=== PATIENT | male | born 1950 | race Caucasian/White ===

== ENCOUNTER 2018-03-31 07:43 | Inpatient (IN) ==
--- OUTSIDE RECORDS SUMMARY | 2018-03-31 07:50 | External Medical Summary | Referral Summary ---
:1950 Author Organization Via [facility] Address [address] [place] [address] Care Team Providers Name Role Phone Duran Garcia V Primary Care Physician Encounter VC Date(s): 01/22/18 - 01/24/[address] [address] Encounter Diagnosis Acute kidney injury (Discharge Diagnosis) - 01/24/18 Nephrolithiasis (Discharge Diagnosis) - 01/24/18 Discharge Disposition: 01-Home or Self Care Attending Physician: Jos Canas MD Admitting Physician: León Rousseau DO Vital Signs Most recent to oldest [Reference Range]: 1 Temperature Oral [35.8-37.3 degC] 36.8 degC (01/24/18 12:00 PM) Peripheral Pulse Rate [60-100 bpm] 53 bpm *LOW* (01/24/18 12:00 PM) Heart Rate Monitored [60-100 bpm] 57 bpm *LOW* (01/24/18 3:48 AM) Respiratory Rate [14-20 br/min] 18 br/min (01/24/18 12:00 PM) Blood Pressure [90-140/60-90 mmHg] 124/68 mmHg (01/24/18 12:00 PM) Mean Arterial Pressure, Cuff 88 mmHg (01/23/18 12:05 PM) SpO2 96 % (01/24/18 12:00 PM) Problem List Condition Effective Dates Status Health Status Informant Acute pain(Confirmed) Active Benign essential hypertension Active (disorder)(Confirmed) BENIGN HYPERTENSION(Confirmed)1 < 07/01/14 Resolved Carotid artery disease(Confirmed) Active Chronic kidney disease stage 3 Active (disorder)(Confirmed) Chronic kidney disease, stage III Active (moderate)(Confirmed) Chronic pain(Confirmed)2 Active Chronic paranoid schizophrenia Active (disorder)(Confirmed) Coronary arteriosclerosis Active (disorder)(Confirmed) Coronary artery disease(Confirmed)3 Active Diabetic renal disease Resolved (disorder)(Confirmed) DM renal manif type II(Confirmed)4 < 07/01/14 Resolved Dyslipidemia(Confirmed)5 Active GOUT NOS(Confirmed)6 Active Gout (disorder)(Confirmed) Active Hearing loss(Confirmed) Active High cholesterol(Confirmed) Active COR ATH UNSP VSL NTV/GFT(Confirmed) Active MIXED HYPERLIPIDEMIA(Confirmed) Active Mixed hyperlipidemia Active (disorder)(Confirmed) Morbid obesity (disorder)(Confirmed) Active Obesity, Class III, BMI 40-49.9 Active (morbid obesity)(Confirmed) Osteoarthritis(Confirmed) Active Overweight(Confirmed) Active PARANOID SCHIZO-CHRONIC(Confirmed) Active Renal insufficiency(Confirmed)7 Active Type II diabetes mellitus with Active nephropathy(Confirmed) 1Hypertension/High BP. See Conversion [id number] SUBSTANCE AGREEMENT SIGNED ON 08/05/201559960iaoypqrz adenosine thallium stress test at proximal inferior wall; septal hypokinesis; EF 37. . See Conversion Zlyjwkve2Zcumrhif-Qvec 2 peripheral neuropathy; nephropathy. See Conversion Sxpjjgza7Aq severe hypertriglyceridemia, low HDL. See Conversion Xxjsxqkq8afbag olecranon tophi. See Conversion Dlyysylc4MTZ stage II (Cr=1.3.-1.4) See Conversion Document Allergies, Adverse Reactions, Alerts Substance Reaction Severity Status lisinopril NAUSEA LIGHTHEADED Active Medications Aspirin Low Dose 81 mg oral delayed release tablet 81 mg 1 tabs, Oral, Daily, 0 Refill(s) Start Date: 01/22/18 Status: Orderedatenolol 25 mg oral tablet 25 mg 1 tabs, Oral, Bedtime (once a day), # 30 tabs, 0 Refill(s) Start Date: 01/22/18 Status: Orderedclopidogrel 75 mg oral tablet 75 mg 1 tabs, Oral, Bedtime (once a day) Start Date: 01/22/18 Status: Orderedferrous sulfate 325 mg (65 mg elemental iron) oral delayed release tablet 325 mg 1 tabs, Oral, Daily, # 30 tabs, 0 Refill(s), Pharmacy: [facility] [id number], 1 tabs Oral Daily Start Date: 01/24/18 Status: OrderedfluPHENAZine decanoate 25 mg/mL injectable solution 8 mg, IntraMuscular, q2wk Start Date: 01/22/18 Status: Orderedfolic acid 1 mg oral tablet 1 mg 1 tabs, Oral, Daily, # 30 tabs, 0 Refill(s), Pharmacy: [facility] [id number], 1 tabs Oral Daily Start Date: 01/24/18 Status: OrderedHYDROcodone-acetaminophen 10 mg-325 mg oral tablet range dose 1 tabs, Oral, TID, as needed for pain, 0 Refill(s) Start Date: 01/22/18 Status: Orderedrosuvastatin 40 mg oral tablet 40 mg 1 tabs, Oral, Daily, 0 Refill(s) Start Date: 01/22/18 Status: OrderedVitamin B12 100 mcg oral tablet 100 mcg 1 tabs, Oral, Daily, # 30 tabs, 0 Refill(s), Pharmacy: [facility] [id number], 1 tabs Oral Daily Start Date: 01/24/18 Status: OrderedVitamin C 500 mg oral tablet 500 mg 1 tabs, Oral, Daily, # 30 tabs, 0 Refill(s), Pharmacy: [facility] [id number], 1 tabs Oral Daily Start Date: 01/24/18 Status: Ordered Results Hematology Most recent to oldest [Reference Range]: 1 WBC [4.8-10.8 10*3/uL] 8.5 10*3/uL (01/24/18 3:04 AM) RBC [4.60-6.20] 3.99 *LOW* (01/24/18 3:04 AM) Hgb [14.0-18.0 gm/dL] 12.1 gm/dL *LOW* (01/24/18 3:04 AM) Hct [42.0-52.0 %] 37.2 % *LOW* (01/24/18 3:04 AM) MCV [82.0-99.0 fL] 93.2 fL (01/24/18 3:04 AM) MCH [27.0-32.0 pg] 30.3 pg (01/24/18 3:04 AM) MCHC [32.0-36.0 gm/dL] 32.5 gm/dL (01/24/18 3:04 AM) RDW [11.5-14.5 %] 13.8 % (01/24/18 3:04 AM) Platelet [150-400 10*3/uL] 160 10*3/uL (01/24/18 3:04 AM) MPV [9.4-12.3 fL] 11.2 fL (01/24/18 3:04 AM) Immature Granulocytes [0.0-1.0 %] 0.4 % (01/24/18 3:04 AM) Neutrophils [51-75 %] 68 % (01/24/18 3:04 AM) Lymphocytes [20-46 %] 22 % (01/24/18 3:04 AM) Monocytes [4-11 %] 8 % (01/24/18 3:04 AM) Eosinophils [0-4 %] 2 % (01/24/18 3:04 AM) Basophils [0-2 %] 0 % (01/24/18 3:04 AM) Neutro Absolute [1.90-7.00] 5.78 (01/24/18 3:04 AM) Lymph Absolute [0.80-3.30] 1.85 (01/24/18 3:04 AM) Clark Absolute [0.30-1.00] 0.64 (01/24/18 3:04 AM) Eos Absolute [0.00-0.50] 0.16 (01/24/18 3:04 AM) Baso Absolute [0.00-0.20] 0.02 (01/24/18 3:04 AM) Nucleated RBC Automated [0 /100 WBC] 0.0 /100 WBC (01/24/18 3:04 AM) Reticulocyte [0.6-2.5 %] 1.8 % (01/22/18 5:37 PM) Coagulation Most recent to oldest [Reference Range]: 1 INR [0.9-1.2] 1.1 (01/23/18 8:02 AM) PTT [25.0-35.0 seconds] 24.4 seconds *LOW* (01/23/18 8:02 AM) Chemistry Most recent to oldest [Reference Range]: 1 Sodium Lvl [136-144 mEq/L] 139 mEq/L (01/24/18 3:04 AM) Potassium Lvl [3.6-5.1 mEq/L] 4.9 mEq/L (01/24/18 3:04 AM) Chloride [99-109 mEq/L] 109 mEq/L (01/24/18 3:04 AM) CO2 [22-32 mEq/L] 23 mEq/L (01/24/18 3:04 AM) AGAP [3-20 mEq/L] 7 mEq/L (01/24/18 3:04 AM) BUN [4-20 mg/dL] 36 mg/dL *HI* (01/24/18 3:04 AM) Glucose Lvl [70-100 mg/dL] 159 mg/dL *HI* (01/24/18 3:04 AM) Creatinine Lvl [0.64-1.27 mg/dL] 2.32 mg/dL *HI* (01/24/18 3:04 AM) eGFR [>60 mL/min] 28 mL/min 1 *ABN* (01/24/18 3:04 AM) Calcium Lvl [8.6-10.0 mg/dL] 8.6 mg/dL (01/24/18 3:04 AM) Albumin Lvl [3.5-4.8 gm/dL] 2.6 gm/dL *LOW* (01/24/18 3:04 AM) Total Protein [6.1-7.9 gm/dL] 5.6 gm/dL *LOW* (01/22/18 5:37 PM) ALT [17-63 U/L] 10 U/L *LOW* (01/22/18 5:37 PM) AST [15-41 U/L] 17 U/L (01/22/18 5:37 PM) Alk Phos [26-104 U/L] 62 U/L (01/22/18 5:37 PM) Bili Total [0.2-1.2 mg/dL] 0.6 mg/dL 2 (01/22/18 5:37 PM) Bili Direct [0.0-0.2 mg/dL] 0.1 mg/dL (01/22/18 5:37 PM) Bili Indirect [0.0-1.0 mg/dL] 0.5 mg/dL (01/22/18 5:37 PM) Iron [65-175 mcg/dL] 40 mcg/dL *LOW* (01/22/18 5:37 PM) TIBC [268-490 mcg/dL] 228 mcg/dL *LOW* (01/22/18 5:37 PM) Iron Sat [11-46 %] 18 % (01/22/18 5:37 PM) Transferrin [180-329 mg/dL] 153 mg/dL *LOW* (01/22/18 5:37 PM) Ferritin Lvl [24-340 ng/mL] 331 ng/mL (01/22/18 5:37 PM) Magnesium Lvl [1.8-2.5 mg/dL] 1.8 mg/dL (01/24/18 3:04 AM) Uric Acid [4.8-8.7 mg/dL] 9.6 mg/dL *HI* (01/24/18 3:04 AM) Phosphorus [2.4-4.7 mg/dL] 4.2 mg/dL 3 (01/24/18 3:04 AM) Vitamin B12 Lvl [213-816 pg/mL] 237 pg/mL (01/22/18 5:37 PM) Folate Lvl [7.0-31.4 ng/mL] 4.1 ng/mL *LOW* (01/22/18 5:37 PM) 1Result Comment: Multiply eGFR results by 1.21 for race.2Result Comment: Naproxen, specifically the metabolite O-desmethylnaproxen, may cause spurious elevation in Total Bilirubin levels.3Result Comment: High dosages of liposomal Amphotericin B (AmBisome) therapy or other drug preparations that use a liposomal envelope to facilitate drug delivery may cause falsely elevated results for phosphorus.Urinalysis Most recent to oldest [Reference Range]: 1 UA Color Straw (01/22/18 8:55 PM) UA Appear Clear (01/22/18 8:55 PM) UA pH [5.0-8.0] 5.0 (01/22/18 8:55 PM) UA Leuk Est [Negative] Negative (01/22/18 8:55 PM) UA Nitrite [Negative] Negative (01/22/18 8:55 PM) UA Protein [Negative] Negative (01/22/18 8:55 PM) UA Glucose [Negative] Pos 1+ *ABN* (01/22/18 8:55 PM) UA Ketones [Negative] Negative (01/22/18 8:55 PM) UA Urobilinogen [<1.0] Negative (01/22/18 8:55 PM) UA Bili [Negative] Negative (01/22/18 8:55 PM) UA Blood [Negative] Pos 1+ *ABN* (01/22/18 8:55 PM) UA Spec Grav [1.003-1.030] 1.015 (01/22/18 8:55 PM) Type Not Specified (01/22/18 8:55 PM) UA WBC [0-4] 2-5 (01/22/18 8:55 PM) UA RBC [0-2] 2-5 (01/22/18 8:55 PM) Epithelial Cells None Seen (01/22/18 8:55 PM) UA Bacteria None Seen (01/22/18 8:55 PM) Microbiology Reports TEST:Urine Culture STATUS:Order in Progress BODY SITE: SOURCE:Urine COLLECTED DATE/TIME:01/22/18 8:55 PMUrine CultureNo growth Immunizations Given and Recorded Vaccine Date Status Refusal Reason influenza virus vaccine, inactivated 08/17/16 Given influenza virus vaccine, inactivated 08/05/15 Given influenza virus vaccine, inactivated 07/11/14 Recorded pneumococcal 13-valent conjugate vaccine 10/22/14 Given tetanus/diphtheria/pertussis, acel(Tdap) 03/29/13 Recorded influenza virus vaccine, live 06/02/11 Given pneumococcal 23-polyvalent vaccine 07/22/05 Recorded Procedures Procedure Date Related Diagnosis Body Site Status Placement of nephrostomy catheter, 01/23/18 Completed percutaneous, including diagnostic nephrostogram and/or ureterogram when performed, imaging guidance (eg, ultrasound and/or fluoroscopy) and all associated radiological supervision and interpretation Diabetic foot examination 10/22/14 Completed Hospitalization 09/12/12 Completed DIABETIC FOOT EXAM1 09/11/09 Completed Diabetic eye exam2 Completed DIABETIC FOOT/FILAMENT/PULSES EXAM3 Completed left navicular fx w/ bone graft Completed quadruple bypass surgery Completed Right knee scope Completed right rotator cuff repair Completed Tonsillectomy Completed 1DM FOOT RCK; 06-02-11. See Conversion [id number] in summer [id number]. See Conversion Document Social History Social History Type Response Smoking Status Never smoker entered on: 04/22/14
--- OUTSIDE RECORDS SUMMARY | 2018-03-31 07:50 | External Medical Summary | Referral Summary ---
:1950 Author Organization [facility] Address [address] [place] [address] [place] [address] Care Team Providers Name Role Phone Duran Garcia V Primary Care Physician Encounter VC Date(s): 02/17/17 - 02/17/17 [facility] [place] [phone] [place] Discharge Diagnosis: Chronic paranoid schizophrenia (disorder) Discharge Diagnosis: Gout Discharge Diagnosis: Chronic pain Discharge Diagnosis: Mixed hyperlipidemia Discharge Diagnosis: Type II diabetes mellitus with nephropathy Discharge Diagnosis: Benign essential hypertension Discharge Disposition: 01-Home or Self Care Attending Physician: Duran Garcia MD Admitting Physician: Duran Garcia MD Vital Signs Most recent to oldest [Reference Range]: 1 Peripheral Pulse Rate [60-100 bpm] 78 bpm (02/17/17 8:14 AM) Respiratory Rate [14-20 br/min] 18 br/min (02/17/17 8:14 AM) Blood Pressure [90-140/60-90 mmHg] 132/80 mmHg (02/17/17 8:14 AM) Problem List Condition Effective Dates Status Health Status Informant Benign essential hypertension Active (disorder)(Confirmed) BENIGN HYPERTENSION(Confirmed)1 [...] with Active nephropathy(Confirmed) 1Hypertension/High BP. See Conversion [id number] SUBSTANCE AGREEMENT SIGNED ON 08/05/201512102nkqwqjyb adenosine thallium stress test at proximal inferior wall; septal hypokinesis; EF 37. . See Conversion Ghjpvjgf3Ecxpijgq-Uaxe 2 peripheral neuropathy; nephropathy. See Conversion Otitters0Vl severe hypertriglyceridemia, low HDL. See Conversion Kkytrzdt1zoefr olecranon tophi. See Conversion Cousedfn8DAA stage II (Cr=1.3.-1.4) See Conversion Document Allergies, Adverse Reactions, Alerts Substance Reaction Severity Status lisinopril NAUSEA LIGHTHEADED Active Medications atenolol 25 mg oral tablet See Instructions, TAKE ONE TABLET BY MOUTH DAILY, # 30 tabs, 5 Refill(s), eRx: [facility] , TAKE ONE TABLET BY MOUTH DAILY Start Date: 04/08/16 Status: Orderedclopidogrel 75 mg oral tablet See Instructions, TAKE ONE TABLET BY MOUTH EVERY DAY, # 30 tabs, 5 Refill(s), eRx: [facility] [id number] Start Date: 01/07/17 Status: Orderedcolchicine 0.6 mg oral tablet See Instructions, TAKE 1 TABLET BY MOUTH TWICE DAILY, # 60 tabs, eRx: [facility] [id number] Start Date: 12/08/16 Status: OrderedCrestor 40 mg oral tablet See Instructions, TAKE 1 TABLET BY MOUTH DAILY, # 90 tabs, 1 Refill(s), eRx: [facility] , TAKE 1 TABLET BY MOUTH DAILY Start Date: 12/11/15 Status: OrderedfluPHENAZine 2.5 mg oral tablet See Instructions, gets every 2 weeks at [facility], 0 Refill(s) Start Date: 04/22/14 Status: OrderedHYDROcodone-acetaminophen 10 mg-325 mg oral tablet 1 tabs, Oral, TID, as needed for chronic neuropathy, MUST LAST ONE MONTH, # 90 tabs, 0 Refill(s) Start Date: 02/11/17 Status: Orderedlosartan 50 mg oral tablet See Instructions, TAKE ONE TABLET BY MOUTH DAILY, # 30 tabs, eRx: [facility] [id number] Start Date: 09/30/16 Status: Orderedpioglitazone 30 mg oral tablet See Instructions, TAKE ONE TABLET BY MOUTH DAILY, # 30 tabs, 2 Refill(s), eRx: [facility] [id number], TAKE ONE TABLET BY MOUTH DAILY Start Date: 06/25/16 Status: Ordered Results Chemistry Most recent to oldest [Reference Range]: 1 Sodium Lvl [135-144 mEq/L] 140 mEq/L (02/17/17 8:50 AM) Potassium Lvl [3.5-5.2 mEq/L] 4.3 mEq/L (02/17/17 8:50 AM) Chloride [99-111 mEq/L] 111 mEq/L (02/17/17 8:50 AM) CO2 [23-31 mEq/L] 23 mEq/L (02/17/17 8:50 AM) AGAP [3-20 mEq/L] 6 mEq/L (02/17/17 8:50 AM) BUN [8-26 mg/dL] 17 mg/dL (02/17/17 8:50 AM) Glucose Lvl [70-99 mg/dL] 154 mg/dL *HI* (02/17/17 8:50 AM) Creatinine Lvl [0.72-1.25 mg/dL] 1.63 mg/dL *HI* (02/17/17 8:50 AM) eGFR [>60 mL/min] 42 mL/min 1 *ABN* (02/17/17 8:50 AM) Calcium Lvl [8.4-10.2 mg/dL] 9.3 mg/dL (02/17/17 8:50 AM) Uric Acid [3.5-7.2 mg/dL] 12.2 mg/dL *HI* (02/17/17 8:50 AM) Chol [0-199 mg/dL] 167 mg/dL (02/17/17 8:50 AM) Trig [0-149 mg/dL] 172 mg/dL *HI* (02/17/17 8:50 AM) HDL [40-84 mg/dL] 35 mg/dL *LOW* (02/17/17 8:50 AM) LDL [0-130 mg/dL] 98 mg/dL (02/17/17 8:50 AM) VLDL Cholesterol [0-28 mg/dL] 34 mg/dL *HI* (02/17/17 8:50 AM) Cardiac Risk [0.0-5.7] 4.8 (02/17/17 8:50 AM) Hgb A1c [4.1-5.6 %] 6.3 % *HI* (02/17/17 8:50 AM) eAvg Glucose 134.1 mg/dL (02/17/17 8:50 AM) 1Result Comment: Multiply eGFR results by 1.21 for race. Immunizations Given and Recorded Vaccine Date Status Refusal Reason influenza virus vaccine, inactivated 08/17/16 Given influenza virus vaccine, inactivated 08/05/15 Given influenza virus vaccine, inactivated 07/11/14 Recorded influenza virus vaccine, live 06/02/11 Given pneumococcal 13-valent conjugate vaccine 10/22/14 Given pneumococcal 23-polyvalent vaccine 07/22/05 Recorded tetanus/diphtheria/pertussis, acel(Tdap) 03/29/13 Recorded Procedures Procedure Date Related Diagnosis Body Site Diabetic foot examination 10/22/14 Hospitalization 09/12/12 DIABETIC FOOT EXAM1 09/11/09 Diabetic eye exam2 DIABETIC FOOT/FILAMENT/PULSES EXAM3 left navicular fx w/ bone graft quadruple bypass surgery Right knee scope right rotator cuff repair Tonsillectomy 1DM FOOT RCK; 06-02-11. See Conversion Oqsbkqkt8ntth in summer. See Conversion Document Social History Social History Type Response Smoking Status Never smoker Assessment and Plan Extracted from: Title: 3 Month CDM Author: Duran Garcia MD Date: 02/17/17 Impression and Plan Diagnosis Benign essential hypertension (PYE75-WW I10, Discharge, Medical). Chronic pain (PVV24-TX G89.29, Discharge, Medical). Chronic paranoid schizophrenia (disorder) (ABQ56-PE F20.0, Discharge, Medical). Gout (KXJ32-JB M10.9, Discharge, Medical). Mixed hyperlipidemia (ZBN07-EQ E78.2, Discharge, Medical). Type II diabetes mellitus with nephropathy (HCJ77-JQ E11.21, Discharge, Medical ). Orders Orders (Selected) Outpatient Orders Future (On Hold) Albumin/Creatinine Ratio, Urine: BMP: Fasting Lipid Profile: Hgb A1c: Uric Acid: .
--- OUTSIDE RECORDS SUMMARY | 2018-03-31 07:50 | External Medical Summary | Referral Summary ---
:1950 Author Organization [facility] [address] [place] [address] Care Team Providers Name Role Phone Duran Garcia V Primary Care Physician Encounter VC Date(s): 05/24/17 - 05/24/17 [facility] [address] [place] [phone] [place] Discharge Diagnosis: Morbid obesity (disorder) Discharge Diagnosis: Chronic pain Discharge Diagnosis: Type II diabetes mellitus with nephropathy Discharge Diagnosis: Mixed hyperlipidemia Discharge Diagnosis: Benign essential hypertension Discharge Diagnosis: Coronary arteriosclerosis Discharge Disposition: 01-Home or Self Care Attending Physician: Duran Garcia MD Admitting Physician: Duran Garcia MD Vital Signs Most recent to oldest [Reference Range]: 1 Peripheral Pulse Rate [60-100 bpm] 77 bpm (05/24/17 10:51 AM) Respiratory Rate [14-20 br/min] 18 br/min (05/24/17 10:51 AM) Blood Pressure [90-140/60-90 mmHg] 130/82 mmHg (05/24/17 10:51 AM) Problem List Condition Effective Dates Status [...] with Active nephropathy(Confirmed) 1Hypertension/High BP. See Conversion [id number] SUBSTANCE AGREEMENT SIGNED ON 08/05/201518611mnstupou adenosine thallium stress test at proximal inferior wall; septal hypokinesis; EF 37. . See Conversion Uyqcwxpc7Igjoftww-Cdkr 2 peripheral neuropathy; nephropathy. See Conversion Uzfvyvps2Jv severe hypertriglyceridemia, low HDL. See Conversion Uaqvjsfa7lners olecranon tophi. See Conversion Sawjtvbu4HBP stage II (Cr=1.3.-1.4) See Conversion Document Allergies, Adverse Reactions, Alerts Substance Reaction Severity Status lisinopril NAUSEA LIGHTHEADED Active Medications clopidogrel 75 mg oral tablet See Instructions, TAKE ONE TABLET BY MOUTH EVERY DAY, # 30 tabs, 5 Refill(s), eRx: [facility] [id number] Start Date: 01/07/17 Status: Orderedcolchicine 0.6 mg oral tablet See Instructions, TAKE 1 TABLET BY MOUTH TWICE DAILY, # 60 tabs, 2 Refill(s), eRx: [facility] [id number] Start Date: 03/21/17 Status: OrderedfluPHENAZine 2.5 mg oral tablet See Instructions, gets every 2 weeks at [facility], 0 Refill(s) Start Date: 04/22/14 Status: OrderedHYDROcodone-acetaminophen 10 mg-325 mg oral tablet 1 tabs, Oral, TID, as needed for chronic neuropathy, MUST LAST ONE MONTH, # 90 tabs, 0 Refill(s) Start Date: 05/12/17 Status: Orderedlosartan 50 mg oral tablet See Instructions, TAKE ONE TABLET BY MOUTH DAILY, # 90 tabs, eRx: [facility] [id number] Start Date: 04/05/17 Status: OrderedMetoprolol Succinate ER 25 mg oral tablet, extended release See Instructions, TAKE 1 TABLET BY MOUTH DAILY TO REPLACE ATENOLOL 25 MG DUE TO NOT BEING ABLE TO GET FROM [facility], # 90 tabs, 6 Refill(s), eRx: [facility] Start Date: 04/19/17 Status: Orderedpioglitazone 30 mg oral tablet See Instructions, TAKE ONE TABLET BY MOUTH DAILY, # 30 tabs, 1 Refill(s), eRx: [facility] Start Date: 04/05/17 Status: Orderedrosuvastatin 40 mg oral tablet See Instructions, TAKE 1 TABLET BY MOUTH DAILY, # 90 tabs, 2 Refill(s), eRx: [facility] Start Date: 04/22/17 Status: Ordered Results Chemistry Most recent to oldest [Reference Range]: 1 Hgb A1c [4.1-5.6 %] 6.2 % *HI* (05/24/17 11:30 AM) eAvg Glucose 131.2 mg/dL (05/24/17 11:30 AM) Toxicology Most recent to oldest [Reference Range]: 1 Prescribed Meds - 1 (05/24/17 2:25 PM) Location, Toxicology [facility] (05/24/17 2:25 PM) [facility] (05/24/17 2:25 PM) Reason Physical (05/24/17 2:25 PM) SSN ? (05/24/17 2:25 PM) 1Result Comment: hydrocodone Immunizations Given and Recorded Vaccine Date Status [...] Tonsillectomy 1DM FOOT RCK; 06-02-11. See Conversion Pynigkbf8edua in summer [id number]/15/09. See Conversion Document Social History Social History Type Response Smoking Status Never smoker entered on: 04/22/14 Assessment and Plan Extracted from: Title: 3 Month CDM DM HTN Author: Duran Garcia MD Date: 05/24/17 Impression and Plan Diagnosis Type II diabetes mellitus with nephropathy (UUF96-QZ E11.21, Discharge, Medical ). Morbid obesity (disorder) (KBI07-NY E66.01, Discharge, Medical). Mixed hyperlipidemia (EVJ44-HE E78.2, Discharge, Medical). Coronary arteriosclerosis (KSI49-EJ I25.10, Discharge, Medical). Chronic pain (CRJ45-PB G89.29, Discharge, Medical). Benign essential hypertension (EZY30-AP I10, Discharge, Medical). Orders Orders (Selected) Outpatient Orders Future (On Hold) Hgb A1c: Pain Management Drug Match: Urine Drug Screen 10: .
--- OUTSIDE RECORDS SUMMARY | 2018-03-31 07:50 | External Medical Summary | Referral Summary ---
:1950 Author Organization [facility] Address [address] [place] [address] [place] [id number] Care Team Providers Name Role Phone Duran Garcia V Primary Care Physician Encounter VC Date(s): 11/16/16 - 11/16/16 [facility] [address] [place] [phone] Discharge Diagnosis: Type II diabetes mellitus with nephropathy Discharge Diagnosis: Diabetic neuropathy Discharge Diagnosis: Chronic pain Discharge Diagnosis: Medication monitoring encounter Discharge Diagnosis: Benign essential hypertension Discharge Diagnosis: Mixed hyperlipidemia Discharge Disposition: 01-Home or Self Care Attending Physician: Duran Garcia MD Admitting Physician: Duran Garcia MD Vital Signs Most recent to oldest [Reference Range]: 1 Peripheral Pulse Rate [60-100 bpm] 46 bpm *LOW* (11/16/16 10:11 AM) Respiratory Rate [14-20 br/min] 20 br/min (11/16/16 10:11 AM) Blood Pressure [90-140/60-90 mmHg] 108/74 mmHg (11/16/16 10:11 AM) SpO2 96 % (11/16/16 10:11 AM) Problem List Condition Effective Dates Status [...] with Active nephropathy(Confirmed) 1Hypertension/High BP. See Conversion [id number] SUBSTANCE AGREEMENT SIGNED ON 08/05/201544452hpvvrdes adenosine thallium stress test at proximal inferior wall; septal hypokinesis; EF 37. . See Conversion [id number]-Rnmd 2 peripheral neuropathy; nephropathy. See Conversion Abvfozqu3Ep severe hypertriglyceridemia, low HDL. See Conversion [id number] olecranon tophi. See Conversion [id number] stage II (Cr=1.3.-1.4) See Conversion Document Allergies, Adverse Reactions, Alerts Substance Reaction Severity Status lisinopril NAUSEA LIGHTHEADED Active Medications atenolol 25 mg oral tablet See Instructions, TAKE ONE TABLET BY MOUTH DAILY, # 30 tabs, 5 Refill(s), eRx: [facility] , TAKE ONE TABLET BY MOUTH DAILY Start Date: 04/08/16 Status: Orderedclopidogrel 75 mg oral tablet See Instructions, TAKE ONE TABLET BY MOUTH EVERY DAY, # 30 tabs, 2 Refill(s), eRx: [facility] , TAKE ONE TABLET BY MOUTH EVERY DAY Start Date: 03/18/16 Status: Orderedcolchicine 0.6 mg oral tablet See Instructions, TAKE 1 TABLET BY MOUTH TWICE DAILY, # 60 tabs, eRx: [facility] Start Date: 09/02/16 Status: OrderedCrestor 40 mg oral tablet See Instructions, TAKE 1 TABLET BY MOUTH DAILY, # 90 tabs, 1 Refill(s), eRx: [facility] , TAKE 1 TABLET BY MOUTH DAILY Start Date: 12/11/15 Status: OrderedfluPHENAZine 2.5 mg oral tablet See Instructions, gets every 2 weeks at [facility], 0 Refill(s) Start Date: 04/22/14 Status: OrderedHYDROcodone-acetaminophen 10 mg-325 mg oral tablet 1 tabs, Oral, TID, as needed for chronic neuropathy, MUST LAST ONE MONTH, # 90 tabs, 0 Refill(s) Start Date: 11/11/16 Status: Orderedlosartan 50 mg oral tablet See Instructions, TAKE ONE TABLET BY MOUTH DAILY, # 30 tabs, eRx: [facility] [id number] Start Date: 09/30/16 Status: Orderedpioglitazone 30 mg oral tablet See Instructions, TAKE ONE TABLET BY MOUTH DAILY, # 30 tabs, 2 Refill(s), eRx: [facility] [id number], TAKE ONE TABLET BY MOUTH DAILY Start Date: 06/25/16 Status: Ordered Results Chemistry Most recent to oldest [Reference Range]: 1 Sodium Lvl [135-144 mEq/L] 139 mEq/L (11/16/16 10:50 AM) Potassium Lvl [3.5-5.2 mEq/L] 4.7 mEq/L (11/16/16 10:50 AM) Chloride [99-111 mEq/L] 105 mEq/L (11/16/16 10:50 AM) CO2 [23-31 mEq/L] 25 mEq/L (11/16/16 10:50 AM) AGAP [3-20] 9 (11/16/16 10:50 AM) BUN [8-26 mg/dL] 19 mg/dL (11/16/16 10:50 AM) Glucose Lvl [70-99 mg/dL] 158 mg/dL *HI* (11/16/16 10:50 AM) Creatinine Lvl [0.72-1.25 mg/dL] 1.59 mg/dL *HI* (11/16/16 10:50 AM) eGFR [>60 mL/min] 44 mL/min 1 *ABN* (11/16/16 10:50 AM) Calcium Lvl [8.4-10.2 mg/dL] 9.6 mg/dL (11/16/16 10:50 AM) Albumin Lvl [3.4-4.8 gm/dL] 3.9 gm/dL (11/16/16 10:50 AM) Total Protein [6.0-7.6 gm/dL] 6.8 gm/dL (11/16/16 10:50 AM) ALT [0-55 U/L] 12 U/L (11/16/16 10:50 AM) AST [5-34 U/L] 19 U/L (11/16/16 10:50 AM) Alk Phos [40-150 U/L] 84 U/L (11/16/16 10:50 AM) Bili Total [0.2-1.2 mg/dL] 0.8 mg/dL (11/16/16 10:50 AM) Bili Direct [0.0-0.5 mg/dL] 0.2 mg/dL (11/16/16 10:50 AM) Bili Indirect [0.0-1.0 mg/dL] 0.6 mg/dL (11/16/16 10:50 AM) Hgb A1c [4.1-5.6 %] 6.7 % *HI* (11/16/16 10:50 AM) eAvg Glucose 145.6 mg/dL (11/16/16 10:50 AM) 1Result Comment: Multiply eGFR results by [...] Tonsillectomy 1DM FOOT RCK; 06-02-11. See Conversion Rhlfzhcn0ukix in summer. See Conversion Document Social History Social History Type Response Smoking Status Never smoker Assessment and Plan Extracted from: Title: 3 Month Chronic Pain Author: Duran Garcia MD Date: 11/16/16 Patient: MIGUEL ROSARIO Age: 66 years Sex: Male : 1950 Associated Diagnoses: Medication monitoring encounter; Benign essential hypertension; Mixed hyperlipidemia; Chronic pain; Type II diabetes mellitus with nephropathy; Diabetic neuropathy Author: Duran Garcia MD Visit Information Visit type: Scheduled follow-up. Source of history: Self. History limitation: None. Chief Complaint 11/16/2016 10:11 CDT 3 mo. chronic pain ck. History of Present Illness Assessment and Plan: Overall he is stable and doing well. His current pain regimen is adequately controlling his pain. Will get Hgb A1c, BMP and liver panel today. Narcotic pain agreement signed today. Follow up in 3 months for CRMMP or sooner if needed. HPI: 66 year old patient is here today for 3 month chronic pain management follow up. He reports his pain control is adequate during the day, occasionally has pain at night in bed. He reports occasional sharp in in the left knee. Chronic issues: Chronic pain in bilateral legs due to neuropathy Routine medication: Ewing 10-325mg TID Breakthrough medication: None. Use/Agreement: Ewing 10,g-325mg 90 tabs to last 30 days. Side effects from medications: Constipation occasionally, well controlled. Last UDS: NA Diabetes Type II: He states he does not check his blood sugars at all. Last Hgb A1c 6.5 on 05/18/16 Microalbumin normal in February 2016. Last eye exam: Negative for retinopathy on 09/29/[address] Santiago Gasca. Last foot exam: Known neuropathy: 05/18/16 Hypertension: He reports his home blood pressures are at goal. He is on Atenolol 25mg and Losartan 50mg. No side effects/adverse sx. ROS: Constitutional: Generally feeling well with no weight changes. Respiratory: No cough, shortness of breath, or wheezing. Cardiovascular: No chest pains or palpitations. No edema. Gastrointestinal: No abdominal pain or change in bowel habits. Neurovascular: No dizziness, drowsiness. Urinary: No urinary problems. PFSH: Medical Problem list reviewed from EHR. PHYSICAL EXAM: Appears in no acute distress. Oral mucous membranes are moist and appears well hydrated. Neck supple without adenopathy or JVD. Lungs sounds are clear. Heart regular rate and rhythm. Abdomen soft, nontender, without organomegaly. Extremities without edema. Health Status Allergies: Allergic Reactions (Selected) Severity Not Documented Lisinopril- Nausea lightheaded. Current medications: Home Medications (8) Active atenolol 25 mg oral tablet See Instructions clopidogrel 75 mg oral tablet See Instructions colchicine 0.6 mg oral tablet See Instructions Crestor 40 mg oral tablet See Instructions fluPHENAZine 2.5 mg oral tablet See Instructions HYDROcodone-acetaminophen 10 mg-325 mg oral tablet 1 tabs, PRN, Oral, TID losartan 50 mg oral tablet See Instructions pioglitazone 30 mg oral tablet See Instructions Problem list: Active Problems (23) Benign essential hypertension (disorder) Carotid artery disease Chronic kidney disease stage 3 (disorder) Chronic kidney disease, stage III (moderate) Chronic pain Chronic paranoid schizophrenia (disorder) COR ATH UNSP VSL NTV/GFT Coronary arteriosclerosis (disorder) Coronary artery disease Dyslipidemia Gout (disorder) GOUT NOS Hearing loss High cholesterol MIXED HYPERLIPIDEMIA Mixed hyperlipidemia (disorder) Morbid obesity (disorder) Obesity, Class III, BMI 40-49.9 (morbid obesity) Osteoarthritis Overweight PARANOID SCHIZO-CHRONIC Renal insufficiency Type II diabetes mellitus with nephropathy Histories Family History: Cancer Father Heart disease Mother Grandfather (M) Congestive heart failure Grandfather (P) Procedure history: Diabetic foot examination ([id number]) on 10/22/2014 at 64 Years. Hospitalization ([id number]) on 09/12/2012 at 62 Years. DIABETIC FOOT EXAM ([id number]) on 09/11/2009 at 59 Years. Comments: 07/01/2014 15:20 - Kacie Jeffers DM FOOT RCK; 06-02-11. See Conversion Document DIABETIC FOOT/FILAMENT/PULSES EXAM ([id number]). Comments: 07/01/2014 15:21 - Kacie Jeffers . See Conversion Document Right knee scope ([id number]). right rotator cuff repair ([id number]). left navicular fx w/ bone graft ([id number]). quadruple bypass surgery ([id number]). Tonsillectomy (129705022). Diabetic eye exam (161351). Comments: 10/23/2014 10:33 - Christophe Angel MA done in summer 2013 Social History Social & Psychosocial Habits Tobacco 04/22/2014 Use: Never smoker . Physical Examination Vital Signs 11/16/2016 10:11 CDT Peripheral Pulse Rate 46 bpm LOW Respiratory Rate 20 br/min Systolic Blood Pressure 108 mmHg Diastolic Blood Pressure 74 mmHg SpO2 96 % Measurements from flowsheet : Measurements 11/16/2016 10:11 CDT Height/Length Measured 175.26 cm Weight Measured 122.22 kg BSA Estimated 2.44 m2 Body Mass Index 39.79 kg/m2 Weight - lbs 269.449 lb Height - In 69 inch Review / Management Documentation reviewed: Reviewed prior records, Flowsheet, Reviewed home medications. Impression and Plan Diagnosis Medication monitoring encounter (QUX92-ZZ Z51.81, Discharge, Medical). Benign essential hypertension (BHL88-TV I10, Discharge, Medical). Mixed hyperlipidemia (SYG66-ZA E78.2, Discharge, Medical). Chronic pain (TMX87-TP G89.29, Discharge, Medical). Type II diabetes mellitus with nephropathy (WZJ36-DY E11.21, Discharge, Medical ). Diabetic neuropathy (LJK45-CE E11.40, Discharge, Medical). Orders Orders (Selected) Outpatient Orders Future (On Hold) BMP: Hgb A1c: Liver Panel: . Professional Services 11/16/2016 10:31. This note is prepared by Kalpana Uriarte, acting as a biomedical engineering director for Dr. Duran Garcia. The documentation recorded by the scribe reflects the service I personally performed and the decisions made by me. Addendum by Duran Garcia MD on Addendum: We discussed/considered use of November 16, 2016 12:07 CDT gabapentin for neuropathic pain, but decided not to try that because of potential drug interactions with his psychiatric medicines.
[2018-03-31 08:05] VITALS: BMI 35.0
[2018-03-31] MEDS ORDERED: KETAMINE 500 MG/10 ML INJECTION ONE (09:09)
[2018-03-31] MEDS ORDERED: DEXAMETHASONE 4 MG/ML INJECTION ONE (09:09)
[2018-03-31] MEDS ORDERED: ONDANSETRON 4 MG/2 ML INJECTION ONE (09:09)
[2018-03-31] MEDS ORDERED: FentaNYL 250 MCG/5 ML INJECTION ONE (09:09)
[2018-03-31] MEDS ORDERED: GLYCOPYRROLATE 0.4 MG/2 ML INJECTION ONE (09:10)
[2018-03-31] MEDS ORDERED: DiphenhydrAMINE 50 MG/ML INJECTION ONE (09:10)
[2018-03-31] MEDS ORDERED: ROCURONIUM 50 MG/5 ML INJECTION IVP ONE ×2 (09:13→10:01)
[2018-03-31] MEDS ORDERED: PROPOFOL 20 ML ONE (09:13)
[2018-03-31] MEDS ORDERED: LIDOCAINE 2% (100mg/5mL) 5ml PF SDV ONE (09:13)
[2018-03-31] MEDS: ERTAPENEM 1 G in NS 100 ML IV ONE (09:27)
[2018-03-31] MEDS ORDERED: HYDROMORPHONE 2 MG/ML INJECTION ONE (09:45)
[2018-03-31] MEDS ORDERED: .WATER FOR INJECTION,STERILE 10 ML VIAL ONE (09:46)
[2018-03-31] MEDS: LR 1,000 ML IV SCH ×3 (10:10→12:00)
[2018-03-31] MEDS ORDERED: ENOXAPARIN 40 MG/0.4 ML INJECTION SQ ONE (10:10)
[2018-03-31] MEDS ORDERED: EPHEDRINE 50mg/ml INJECTION ONE (10:18)
[2018-03-31] MEDS ORDERED: PHENYLEPHRINE INJ 10 MG/ML VIAL IV ONE (10:53)
[2018-03-31] MEDS ORDERED: INDOCYANINE GREEN 25mg INJECTION ONE ×2 (11:16→13:02)
[2018-03-31] MEDS ORDERED: LIDOCAINE 1% (10mg/ml) 2mL INJ PF SDV ID ONE (12:15)
[2018-03-31] MEDS ORDERED: NOZIN NASAL SWAB NAS ONE (12:15)
[2018-03-31] MEDS ORDERED: NS 1,000 ML IV SCH (12:15)
--- NOTE | 2018-03-31 12:44 | General Surgery Procedure Note ---
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
[2018-03-31] MEDS ORDERED: ONDANSETRON 4 MG/2 ML INJECTION IVP ONE (12:54)
[2018-03-31] MEDS ORDERED: PROMETHAZINE 25 MG INJECTION IVP PRN (13:38)
--- NOTE | 2018-03-31 13:50 | Operative Note ---
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 OPERATION Laparotomy with open right hemicolectomy. SURGEON Kp Youngblood MD HAND FOLDER Ke Lassiter MD ANESTHESIA General ASA CLASS 4 FINDINGS This patient did have postoperative changes from the laparoscopic appendectomy operation performed on 01/21/2018. The appendix was absent as a result of previous operative removal. There were a few adhesions around the cecum. There was no evidence of any metastatic disease in the peritoneal cavity. There was no ascites. There were no visceral or parietal peritoneal tumor implants. The liver appeared completely normal. There was no evidence of any metastatic disease at the liver. The gallbladder appeared normal. The gallbladder did not contain any stones. There was no evidence of any metastatic disease at the greater omentum. Loops of large and small intestine all appeared normal. DESCRIPTION OF OPERATION The patient was placed in supine position on the operating table. General anesthesia was satisfactorily induced. The abdomen was prepped and draped in routine sterile fashion. A midline vertically oriented abdominal incision was made and extended through the abdominal wall. The peritoneal cavity was entered. The Juanito wound protector was placed at the incision at this time. The Codman retractor was assembled at this time and used to provide exposure. The abdomen was explored with findings as described above. The greater omentum was from the right half of the transverse colon. The hepatic flexure of the colon was mobilized. The peritoneum along the right lateral gutter was incised. The ascending colon was mobilized medially. The duodenum was carefully identified and preserved from injury at this time. The mesentery of the transverse colon was examined. The position of the middle colic artery was identified by palpation of the mesentery. A distal resection margin was selected at the transverse colon just to the right side of the middle colic blood vessels so that there would be a good blood supply to the end of transverse colon which was left in the patient to be used for the anastomosis. The transverse colon was divided at the distal resection margin with the Ethicon brand TLC75 linear cutter stapler. This did allow good blood supply to the remaining mesentery leading up to the remaining transverse colon. A proximal resection margin was selected at the terminal ileum. The terminal ileum was divided at the proximal resection margin with the EthiAxis Three brand TLC75 linear cutter stapler. Mesentery beneath the segment of terminal ileum to be resected was divided. This was done by doubly clamping the mesentery with right angle clamps, dividing the mesentery between clamps and ligating the pedicles of mesentery with 0 Vicryl ligatures. The ileocolic artery and vein were divided at the level of the root of the mesentery. The artery and vein were doubly clamped with right angle clamps, divided between the clamps and ligated with 0 Vicryl ligatures. The mesentery beneath the ascending colon and the hepatic flexure of the colon and the proximal transverse colon was divided at the level of the root of the mesentery. This was done by doubly clamping the mesentery with right angle clamps, dividing the mesentery between right angle clamps and ligating the pedicles of mesentery with 0 Vicryl ligatures. The specimen of terminal ileum, cecum, descending colon and proximal transverse colon along with the underlying mesentery was then handed off as a specimen for study by the pathologist. Irrigation was performed at the peritoneal cavity. Hemostasis appeared to be satisfactory everywhere. The stapled closed end of ileum was brought up into a position adjacent to the stapled closed end of the transverse colon. A functional end-to-end anastomosis was then created between the stapled closed end of the ileum and stapled closed end of the transverse colon using the Net[employer]spex brand TLC75 linear cutter stapler and the EthiAxis Three brand TX60B stapler. The internal staple lines were inspected as this was done and they looked good. The external staple lines were also inspected and they looked good. There did appear to be a good blood supply to the anastomosis. There was no tension on the anastomosis. The lumen of the anastomosis appeared to have satisfactory size. Two stitches of 3-0 Vicryl suture were placed at the crotch of the anastomosis. These were 3-0 Vicryl simple interrupted seromuscular stitches. The opening in the mesentery beneath the anastomosis was closed with a continuous simple [id number] stitch using 3-0 Vicryl suture. Hemostasis was satisfactory throughout the peritoneal cavity. The greater omentum was brought down over the anastomosis and beneath the incision. The Codman retractor was removed. The Juanito wound protector was removed. The surgeon, hospital medical assistant and scrub nurse all changed gowns and gloves at this time. New sterile drapes were placed at the incision. New light handles were used. A reserved clean instrument tray was then used for closing the wound. The abdominal incision was closed. The fascial layer of the incision was closed and the linea alba was reapproximated with a continuous simple over- and-over stitch using #1 PDS suture. Skin margins at the incision were reapproximated with skin durga. Sterile dressings were applied. Sponge, needle and instrument counts were all correct. The patient did appear to tolerate the operation well. The patient was transferred from the operating room to the recovery room in satisfactory condition. BARRIE
[2018-03-31] MEDS: NS 1,000 ML IV SCH (14:03)
--- NOTE | 2018-03-31 14:09 | Anesthesia Postoperative Note ---
- Date and Time Date: 03/31/18 Time: 13:45 - Status Patient Participated in Evaluation: Patient Participated in Person Vital Signs: Temperature 96.9 F 03/31/18 14:05 Pulse Rate 89 03/31/18 14:00 Respiratory Rate 19 03/31/18 14:00 Blood Pressure 134/82 03/31/18 13:46 Pulse Oximetry 98 03/31/18 14:00 Respiratory Function: Airway Patent Cardiovascular Function: Regular Pulse EKG: Sinus Rhythm Mental Status: Alert and Oriented Pain Intensity: 0 Hydration: IV Infusing Nausea/Vomiting: None Complications During Recover: None Apparent - Follow-Up Instructions Instructions: Per Surgeon
[2018-03-31] MEDS: FAMOTIDINE PB 20 MG/50 ML BAG IV SCH (15:23)
[2018-03-31] MEDS: INSULIN ASPART 100unit/ml INJECTION SQ PRN ×2 (18:17→23:11)
[2018-03-31] MEDS: HYDROMORPHONE 2 MG/ML INJECTION IVP PRN (20:19)
[2018-04-01] MEDS: NS 1,000 ML IV SCH ×3 (01:16→23:23)
[2018-04-01] MEDS: FAMOTIDINE PB 20 MG/50 ML BAG IV SCH ×2 (01:16→14:20)
[2018-04-01] MEDS: HYDROMORPHONE 2 MG/ML INJECTION IVP PRN ×3 (02:03→17:00)
[2018-04-01] MEDS: INSULIN ASPART 100unit/ml INJECTION SQ PRN ×3 (06:13→17:52)
[2018-04-01] MEDS: ONDANSETRON 4 MG/2 ML INJECTION IVP PRN ×3 (08:19→20:46)
[2018-04-01] MEDS: ENOXAPARIN 40 MG/0.4 ML INJECTION SQ SCH (08:38)
--- NOTE | 2018-04-01 10:35 | Progress Note ---
DATE 04/01/2018 POSTOP DAY #1 HISTORY The patient was transferred from the recovery room to the critical care unit after the operation yesterday as a precautionary measure. The patient has been doing well overall. He did have some sudden bradycardia in the early evening yesterday. The patient was asymptomatic at this time. The bradycardia resolved spontaneously. Dr. Youngblood was notified. The regular assembler 1st shift for this patient (Dr. Hernandez) is out of town at this time. Dr. Bazzi was consulted regarding this bradycardia. Kalpana will see the patient this morning. The cardiac rhythm has been stable throughout the night. The patient is up in a chair at this time. He is alert and oriented. He reports he has good pain control with intravenous Dilaudid. He has been using incentive spirometry. The patient is receiving Lovenox and sequential compression devices for deep venous thrombosis prophylaxis. The patient is receiving sliding scale insulin for glucose control. Urine output has been good since the operation. PHYSICAL EXAMINATION VITAL SIGNS: Pulse is 70. Respiratory rate is 18. Blood pressure is 111/63. Oxygen saturation is 97% on room air. ABDOMEN: The dressings are left in place at the abdominal incision at this time. LABORATORY DATA White blood cell count is 6300. Hemoglobin is 10.9. Hematocrit is 34.2. Serum sodium is 142. Serum potassium is 4.6. Serum creatinine is 1.3. Serum glucose was 150 this morning. Latest glucometer reading was 172. IMPRESSION Doing well following laparotomy with open right hemicolectomy on 03/31/2018. PLAN 1. Continue to monitor patient in the critical care unit until he is seen by the assembler 1st shift service later this morning. 2. Continue Lovenox and sequential compression devices for deep venous thrombosis prophylaxis. 3. Continue intravenous Pepcid for GI prophylaxis. 4. Continue incentive spirometer. 5. Advance activity as tolerated. 6. Discontinue Reyna catheter. 7. Continue sliding scale insulin for glucose control. MTDD
--- NOTE | 2018-04-01 14:03 | Cardiology Consult Note ---
History of Present Illness Consult date: 03/31/18 Requesting physician: Kp Youngblood Chief complaint: bradycardia History of present illness: Ha is a 67 year old male who is known to Dr. Hernandez's practice with a history of CAD with CABG and MIKE to [facility] through KERRICK 08/2017, HTN, and DM type II who had a low grade appendiceal mucinous neoplasm and underwent open right hemicolectomy yesterday by Dr. Rosendo Youngblood. Post-operatively he was noted to have bradycardia in the 50s and Dr. Bazzi was consulted for further evaluation and we appreciate the consult. Ha is seen in CCU. He reports having a slow heart rate due to his medications (Metoprolol) He reports that the last time he passed out was 1967. He denies dizziness, lightheadedness, chest pain, pressure, palpitations, nausea Review of Systems - Constitutional Constitutional: Absent: chills, fever(s) - EENMT Eyes: Absent: change in vision Balance: Absent: vertigo Mouth/Throat: Absent: sore throat - Cardiovascular Cardiovascular: Absent: chest pain, palpitations, syncope, dyspnea on exertion Vascular: Absent: pedal edema - Respiratory Respiratory: Absent: cough, dyspnea, dyspnea on exertion - Gastrointestinal Gastrointestinal: Absent: constipation, nausea, vomiting - Genitourinary Genitourinary: Absent: dysuria - Integumentary/Breasts Integumentary: Absent: rash - Neurological Neurological: Absent: dizziness - Endocrine Endocrine: Absent: palpitations PFSH Patient Stated Medical History Cerebrovascular Accident Yes: - denies residual 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 Other HEENT Yes: 'BUSTED EAR DRUM' Angina Yes: none in past 6mths Cardiac Arrhythmia Yes: 'BRADYCARDIA' Coronary Artery Disease Yes Hypertension Yes Myocardial Infarction Yes: 1998 Asthma Yes: CHILD Sleep Apnea No Diabetes Mellitus Type 2 Yes Hx Kidney Stones Yes Hx Renal Disease Yes: chronic stage 3 Other Hematologic Yes: takes plavix Osteoarthritis Yes Other Musculoskeletal Yes: gout Chemotherapy Yes: Schizophrenia Yes Clinic Medical History (Last Updated 01/10/18 @ 10:47 by Duyen Baker RN) Angina at rest (Chronic Medical) Bradycardia (Chronic Medical) Hypertension (Chronic Medical) CVA (cerebral vascular accident) (Resolved Medical) Myocardial infarction (Resolved Medical) Surgical History: 1. Tonsillectomy as a child at [facility] at [place], [place]. 2. Operation on left wrist to treat navicular bone fracture at some time in the by Dr. Rich Jackson at [facility] at [place], [place]. 3. Operation to place bone graft from hip to left wrist for treatment of a nonunion of navicular fracture at some time in the at [facility] at [place], [place]. 4. Right rotator cuff repair operation at some time in the by Dr. Lemos at [facility] at [place], [place]. 5. Cardiac catheterization in 1998 at [facility] at [place], [place]. 6. Triple coronary artery bypass operation in 1998 at [facility] at [place], [place]. 7. Cardiac catheterization with placement of coronary artery stent in 2009 at the [facility] at [place], [place]. 8. Cystoscopy, bilateral retrograde pyelogram and left ureteral dilation and ureteroscopic stone lithotripsy and insertion of ureteral stent on 10/28/[address] Wagner at [facility] at [place], [place]. Postoperative diagnosis was gross hematuria and abnormal urine cytology and left ureteropelvic junction stone with left ureteral stricture and left proximal ureteral stone. 9. Cardiac catheterization with placement of drug- eluting coronary artery stent at the left anterior descending coronary artery on 08/23/[address] Hernandez at [place], [place]. One postoperative diagnosis was coronary artery disease. Another diagnosis was apical akinesia with an ejection fraction of about 65%. 10. Laparoscopic appendectomy on 01/21/[address] Youngblood at [facility] at [place], [place]. Pathology report on the appendix did show a diagnosis of low grade appendiceal mucinous neoplasm. 11. Right nephrostomy tube placement on [address] Bradshaw at [facility] at [place], [place]. 12. Cystoscopy, right retrograde pyelogram, right ureteroscopy with laser lithotripsy and right stent placement on 02/01/[address] Bradshaw at [place], [place]. Postoperative diagnosis was right nephrolithiasis. 13. Cystoscopy, right retrograde pyelogram, right ureteroscopy with stone basketing and right stent placement on 03/01/[address] Bradshaw at [facility] at [place], [place]. Postoperative diagnosis was right nephrolithiasis. Family History: Maternal uncle - unknown heart disease mother - heart valve disease - Social History Smoking status: Former smoker second hand exposure: No Substance use type: does not use Alcohol intake frequency: does not drink Current occupational status: retired Does patient use chewing tobacco?: No Current residence: Apartment/Private Home Medications Home Medications Medication Instructions Recorded Confirmed Type Rosuvastatin Calcium [Crestor] 40 mg PO DAILY #0 09/12/12 03/31/18 History Clopidogrel Bisulfate [Clopidogrel] 75 mg PO DAILY #60 10/27/15 03/31/18 History Colchicine 0.6 mg PO DAILY #60 10/27/15 03/31/18 History Metoprolol Succinate 25 mg PO DAILY 06/24/17 03/31/18 History Aspirin *EC* [Ecotrin] 81 mg PO DAILY #30 tab 08/24/17 03/31/18 Rx Losartan [Cozaar] 50 mg PO DAILY 01/08/18 03/31/18 History FluPHENAZine [Prolixin] 8 mg IM Q2WKS 02/01/18 03/31/18 History Pioglitazone [Actos 30 mg] 30 mg PO DAILY 02/01/18 03/31/18 History Hydrocodone/Acetaminophen 1 tab PO TID PRN 03/30/18 03/31/18 History [Hydrocodon-Acetaminophn 10-325] Allergies Allergy/AdvReac Type Severity Reaction Status Date / Time ciprofloxacin AdvReac Intermediate Nausea Verified 03/31/18 08:18 lisinopril AdvReac Intermediate Nausea Verified 03/31/18 08:18 morphine AdvReac Intermediate Nausea and Verified 03/31/18 08:18 Vomiting Exam Vital signs: Temperature 98 F 04/01/18 04:00 Pulse Rate 67 04/01/18 09:00 Respiratory Rate 18 04/01/18 06:04 Blood Pressure 111/63 04/01/18 06:04 Pulse Oximetry 97 04/01/18 06:04 - Constitutional no acute distress, well nourished, cooperative - Routine HEENT Exam Head: Present: normocephalic Nose: dry mucous membranes - Routine Neck Exam Absent: JVD, carotid bruit - Routine Chest/Breast/Axilla Exam Chest wall: Absent: tenderness - Routine Respiratory Exam Present: CTA bilaterally. Absent: dyspnea, rales, wheezes - Routine Cardiovascular Exam Present: RRR, no murmur - Routine Abdominal Exam Present: soft, tenderness - Routine Extremities Exam Present: no edema, pulses intact - Routine Skin Exam Present: intact, dry, warm - Routine Neurological Exam Present: alert, oriented X3 - Routine Psychiatric Exam Present: normal affect, normal thought process Results 04/01/18 04:00 04/01/18 04:01 CBC 04/01/18 Range/Units 04:00 WBC 6.3 D (4.5-11.0) T/MM3 RBC 3.65 L (4.50-5.90) M/MM3 Hgb 10.9 L D (13.5-17.5) GM/DL Hct 34.2 L (41-53) % Plt Count 182 (130-400) T/MM3 Neut # (Auto) 4.7 (1.8-7.7) T/MM3 Lymph # (Auto) 1.0 (1-4.8) T/MM3 [place] # (Auto) 0.6 (0-0.8) T/MM3 Eos # (Auto) 0.0 (0-0.5) T/MM3 Baso # (Auto) 0.0 (0-0.2) T/MM3 Comprehensive Metabolic Panel 04/01/18 Range/Units 04:01 Sodium 142 (136-146) MEQ/L Potassium 4.6 (3.6-5) MEQ/L Chloride 112 H (98-107) MEQ/L Carbon Dioxide 22 (22-30) MEQ/L BUN 17.0 (9-20) MG/DL Creatinine 1.3 D (0.8-1.5) mg/dL Glucose 150 H (75-110) MG/DL Calcium 8.0 L D (8.4-10.2) MG/DL Intake and Output 03/31/18 04/01/18 04/01/18 22:59 06:59 14:59 Intake Total 795.000 / 795.000 778.333 / 778.333 526.667 / 526.667 Output Total 463 / 463 482 / 482 245 / 245 Balance 332.000 / 332.000 296.333 / 296.333 281.667 / 281.667 Intake: IV 795.000 / 795.000 778.333 / 778.333 526.667 / 526.667 Famotidine Pb 20 mg In 50 ml @ 50 / 50 50 / 50 100 mls/hr IV Q12H PAUL Rx#: [id number] Ns 1,000 ml @ 100 mls/hr IV . 745.000 / 745.000 728.333 / 728.333 526.667 / 526.667 Q10H PAUL Rx#:[id number] Output: Urine Amount (Catheter) 463 / 463 482 / 482 245 / 245 Other: Urine Appearance Clear Clear Clear Urine Color Yellow Yellow Yellow Weight 239 lb 10.279 oz Patient Weight 04/02/18 06:59 Weight 239 lb 10.279 oz EKG interpretations - EKG EKG results cardiology: sinus rhythm - AR, pacemaker, normal Myocardial infarction: inferior AR (old age indeterminate) Assessment and Plan - Assessment and Plan (1) Bradycardia Current visit: Yes Status: Acute - Occasional HR as low as 45, nonsustained - asymptomatic - Holding BB as is NPO anyway - continue to monitor telemetry - Mag and TSH WNL (2) S/P right hemicolectomy Current visit: Yes Status: Acute -PO day 1 - Denies c/o pain, N/V - remains NPO (3) Atherosclerosis of coronary artery bypass graft without angina pectoris Current visit: Yes Status: Chronic - Successful MIKE to LAD through [facility] 08/23/17 - off Plavix for emergent surgery - resume when okay with surgery for dual antiplatelet therapy (4) Essential (primary) hypertension Current visit: Yes Status: Chronic Well controlled on current therapy - continue current therapy when okay with surgery (5) Mixed hyperlipidemia Current visit: Yes Status: Chronic Takes Crestor, PCP manages (6) Type 2 diabetes mellitus without complications Current visit: Yes Status: Chronic PCP manages - Assessment and Plan Bradycardia Current visit: Yes Status: Acute - Occasional HR as low as 45, nonsustained - asymptomatic - Holding BB as is NPO anyway - continue to monitor telemetry for pauses or heart block - Mag and TSH WNL S/P right hemicolectomy Current visit: Yes Status: Acute - PO day 1 - Denies c/o pain, N/V - remains NPO Atherosclerosis of coronary artery bypass graft without angina pectoris Current visit: Yes Status: Chronic - Successful MIKE to LAD through [facility] 08/23/17 - off Plavix for emergent surgery - resume when okay with surgery for dual antiplatelet therapy Essential (primary) hypertension Current visit: Yes Status: Chronic - Well controlled on current therapy - continue current therapy when okay with surgery Mixed hyperlipidemia Current visit: Yes Status: Chronic - Takes Crestor, PCP manages Type 2 diabetes mellitus without complications Current visit: Yes Status: Chronic - PCP manages Thank you for allowing us to participate in the care of this patient, we will follow along with you. Patient was examined by me, Kalpana Rosario APRN. Finding were discussed with Dr. Bazzi and together we agree on the plan of care. Hospital Course Summary Disclaimer: The visit summary below is not to be considered part of the above Progress Note.
[2018-04-01] MEDS ORDERED: ACETAMINOPHEN IV 1,000 MG/100 ML VIAL IV ONE (17:26)
[2018-04-01] MEDS ORDERED: ACETAMINOPHEN IV 1,000 MG/100 ML VIAL IV PRN (17:57)
[2018-04-02] MEDS: FAMOTIDINE PB 20 MG/50 ML BAG IV SCH ×2 (01:31→13:57)
[2018-04-02] MEDS: ONDANSETRON 4 MG/2 ML INJECTION IVP PRN (03:30)
[2018-04-02] MEDS: INSULIN ASPART 100unit/ml INJECTION SQ PRN ×3 (06:36→18:00)
[2018-04-02] MEDS: ENOXAPARIN 40 MG/0.4 ML INJECTION SQ SCH (08:51)
[2018-04-02] MEDS: NS 1,000 ML IV SCH ×2 (10:38→21:29)
[2018-04-02] MEDS: LR 1,000 ML IV SCH (13:34)
[2018-04-02] MEDS: ERTAPENEM 1 G in NS 100 ML IV ONE (13:38)
[2018-04-03] MEDS: FAMOTIDINE PB 20 MG/50 ML BAG IV SCH ×2 (01:17→13:45)
[2018-04-03] MEDS: NS 1,000 ML IV SCH ×3 (07:24→13:12)
[2018-04-03] MEDS: ENOXAPARIN 40 MG/0.4 ML INJECTION SQ SCH (08:12)
--- NOTE | 2018-04-03 09:17 | Progress Note ---
DATE 04/02/2018 POSTOP DAY #2 HISTORY The patient was seen in consultation yesterday by the Cardiology Service. Dr. Bazzi was consulted. Impression by Cardiology Service was bradycardia. The patient did have an occasional heart rate as low as 45. This has been nonsustained. It has been asymptomatic. The Cardiology Service recommended continuing to monitor the patient with telemetry. The patient has remained in the critical care unit up to this point. He did have emesis yesterday. He had more nausea and emesis through the night. He received intravenous Zofran and intravenous Phenergan throughout the night for treatment of the nausea and vomiting. He still has some emesis today. Intravenous Tylenol was started for pain control to use as a nonnarcotic for pain control to try to decrease the nausea and vomiting. The patient cannot use intravenous Toradol due to chronic kidney disease. The patient reports he does have good pain control this morning. The patient is up in a chair. He has been urinating without difficulty since removal of the Reyna catheter yesterday. The patient reports having four liquid bowel movements in the last 24 hours. PHYSICAL EXAMINATION VITAL SIGNS: Pulse is 78. Respiratory rate is 19. Blood pressure is 139/84. Oxygen saturation is 98% on room air. ABDOMEN: The abdominal incision looks good. Glucometer readings have been 162 , 142 and 175. IMPRESSION 1. Doing well following laparotomy with open right hemicolectomy on 2017. 2. Episode of bradycardia during the first 24 hours after the operation. 3. Postoperative nausea and vomiting. PLAN 1. Continue to monitor the patient with telemetry monitoring. 2. Continue Lovenox and sequential compression devices for deep venous thrombosis prophylaxis. 3. Continue intravenous Pepcid for GI prophylaxis. 4. Continue incentive spirometry. 5. Advance activity as tolerated. 6. Continue sliding scale insulin for glucose control. 7. Transfer patient from the critical care unit out to the surgical unit today. 8. Hold off starting diet at this time because the patient is having postoperative nausea and vomiting. Diet will be started as soon as this improves. Plavix will be resumed as soon as an oral diet is started. MTDD
[2018-04-03] MEDS: 1/2 NS with KCL 20mEq 1,000 ML IV SCH ×2 (13:11→23:43)
--- NOTE | 2018-04-03 14:16 | Cardiology Progress Note ---
Subjective Principal diagnosis: right hemicolectomy Interval history: Ha is seen in follow up for bradycardia, S/P right hemicolectomy. He is in no distress, takes sips and ice chips without nausea. Denies chest pain or palpitations. Exam Vital signs: Temperature 97.7 F 04/03/18 07:20 Pulse Rate 67 04/03/18 08:00 Respiratory Rate 17 04/03/18 07:20 Blood Pressure 142/79 H 04/03/18 07:20 Pulse Oximetry 96 04/03/18 07:20 Inpatient Medications: Generic Name Dose Route Start Last Admin Trade Name Freq PRN Reason Stop Dose Admin Enoxaparin Sodium 40 mg 04/01/18 09:00 04/03/18 08:12 Lovenox SQ 40 mg DAILY PAUL Administration Hydromorphone HCl 0.5 - 1 mg 03/31/18 13:38 04/01/18 17:00 Dilaudid IVP 1 mg Q1H PRN Administration Pain Famotidine/Sodium Chloride 20 mg in 50 mls @ 100 mls/hr 03/31/18 13:38 13:45 Pepcid Premix IV 100 mls/hr Q12H PAUL Administration Acetaminophen 1,000 mg in 100 mls @ 400 mls/hr 04/01/18 17:57 Ofirmev 1 Gm IV Q6H PRN Doctors order Potassium Chloride/Sodium Chloride 1,000 mls @ 100 mls/hr 04/03/18 13:15 13:45 1/2 Ns With Kcl 20meq Premix IV 0 mls/hr .Q10H PAUL Infusion Insulin Aspart 3 - 12 unit 03/31/18 17:55 04/02/18 18:00 Novolog SQ 3 unit SS PRN Administration Protocol Ondansetron HCl 4 - 8 mg 03/31/18 13:38 04/02/18 03:30 Zofran IVP 4 mg Q6H PRN Administration Nausea &/or vomiting Promethazine HCl 12.5 - 25 mg 03/31/18 13:38 04/01/18 22:04 Phenergan Inj IVP 25 mg Q6H PRN Administration Nausea &/or vomiting Discontinued Medications Generic Name Dose Route Start Last Admin Trade Name Freq PRN Reason Stop Dose Admin Enoxaparin Sodium 40 mg 03/31/18 10:10 03/31/18 09:52 Lovenox SQ 03/31/18 10:11 40 mg O ONE Administration Sodium Chloride 1,000 mls @ 50 mls/hr 03/31/18 12:15 03/31/18 10:10 Normal Saline IV Infused .Q20H PAUL Infusion Ertapenem 1 g/ Sodium Chloride 100 mls @ 200 mls/hr 03/31/18 12:17 04/02/18 13:38 IV 03/31/18 12:46 Not Given PREOP ONE Lactated Ringer's 1,000 mls @ 50 mls/hr 03/31/18 10:45 04/02/18 13:34 Lactated Ringers IV Not Given .Q20H PAUL Sodium Chloride 1,000 mls @ 100 mls/hr 03/31/18 13:38 04/03/18 13:12 Normal Saline IV Not Given .Q10H PAUL Acetaminophen 1,000 mg in 100 mls @ 400 mls/hr 04/01/18 17:26 04/02/18 13:34 Ofirmev 1 Gm IV 04/01/18 17:40 Not Given PRN ONE Isopropyl Alcohol 3 each 03/31/18 12:15 03/31/18 09:00 Nozin Nasal Swab DYLAN 03/31/18 12:16 3 each PREOP ONE Administration Lidocaine HCl 1 mg 03/31/18 12:15 03/31/18 08:55 Xylocaine-Mpf 1% Vial ID 03/31/18 12:16 1 mg O ONE Administration Ondansetron HCl 4 mg 03/31/18 12:54 03/31/18 12:55 Zofran IVP 03/31/18 12:55 4 mg O ONE Administration - Constitutional no acute distress, well nourished, cooperative - Routine HEENT Exam Head: Present: normocephalic ENT: Present: mucous membranes moist - Routine Neck Exam Absent: JVD, carotid bruit - Routine Chest/Breast/Axilla Exam Chest wall: Absent: tenderness - Routine Respiratory Exam Present: CTA bilaterally. Absent: dyspnea, diminished air movement - Routine Cardiovascular Exam Present: RRR, no murmur - Routine Abdominal Exam Present: soft, non tender - Routine Extremities Exam Present: no edema - Routine Skin Exam Present: intact, dry, warm - Routine Neurological Exam Present: alert, oriented X3 - Routine Psychiatric Exam Present: normal affect, normal thought process - Urinary Catheter Management Urethral Cath placed during this visit: yes Insertion date: 03/31/18 Results 04/01/18 04:00 04/03/18 09:42 Comprehensive Metabolic Panel 04/03/18 Range/Units 09:42 Sodium 146 (136-146) MEQ/L Potassium 3.7 D (3.6-5) MEQ/L Chloride 118 H (98-107) MEQ/L Carbon Dioxide 20 L (22-30) MEQ/L BUN 14.0 (9-20) MG/DL Creatinine 1.2 (0.8-1.5) mg/dL Glucose 99 (75-110) MG/DL Calcium 7.9 L (8.4-10.2) MG/DL Intake and Output 04/02/18 04/03/18 04/03/18 22:59 06:59 14:59 Intake Total 968.333 / 968.333 550 / 550 1555.000 / 1555.000 Output Total 350 / 350 325 / 325 Balance 968.333 / 968.333 200 / 200 1230.000 / 1230.000 Intake: IV 668.333 / 668.333 50 / 50 1555.000 / 1555.000 1/2 NS with KCL 20mEq 1,000 ml 56.667 / 56.667 @ 100 mls/hr IV .Q10H PAUL Rx#: [id number] Famotidine Pb 20 mg In 50 ml @ 50 / 50 100 mls/hr IV Q12H PAUL Rx#: [id number] Ns 1,000 ml @ 100 mls/hr IV . 668.333 / 848.857 5181.333 / 1498.333 Q10H PAUL Rx#:[id number] Oral 300 / 300 500 / 500 Output: Urine 350 / 350 325 / 325 Other: Urine Appearance Clear Clear Urine Color Yellow Yellow Urine Odor Normal Size of Bowel Movement Small # Voids 1 Weight 244 lb 14.937 oz Patient Weight 04/04/18 06:59 Weight 244 lb 14.937 oz Assessment and Plan - Assessment and Plan (1) Bradycardia Current visit: Yes Status: Acute (2) S/P right hemicolectomy Current visit: Yes Status: Acute (3) Atherosclerosis of coronary artery bypass graft without angina pectoris Current visit: Yes Status: Chronic (4) Essential (primary) hypertension Current visit: Yes Status: Chronic (5) Mixed hyperlipidemia Current visit: Yes Status: Chronic (6) Type 2 diabetes mellitus without complications Current visit: Yes Status: Chronic - Assessment and Plan Bradycardia Current visit: Yes Status: Acute - Lowest documented HR was 53, last 48 hours 60-90s - asymptomatic - Holding BB. - No pauses or heart block on telemetry - Mag and TSH WNL S/P right hemicolectomy Current visit: Yes Status: Acute - PO day 3 - Denies c/o pain, N/V - Sip and ice chips, tolerates well Atherosclerosis of coronary artery bypass graft without angina pectoris Current visit: Yes Status: Chronic - Successful MIKE to LAD through [facility] 08/23/17 - off Plavix for emergent surgery - resume Plavix and Aspirin for dual antiplatelet therapy with a sip when okay with Dr. Youngblood Essential (primary) hypertension Current visit: Yes Status: Chronic - Trending up. Hydralazine 10mg IV q 6H prn SBP >180 - continue home therapy when okay with surgery Mixed hyperlipidemia Current visit: Yes Status: Chronic - Takes Crestor, PCP manages Type 2 diabetes mellitus without complications Current visit: Yes Status: Chronic - PCP manages Thank you for allowing us to participate in the care of this patient, we will follow along with you. Hospital Course Summary Disclaimer: The visit summary below is not to be considered part of the above Progress Note.
[2018-04-03] MEDS ORDERED: HYDRALAZINE 20 MG/ML INJECTION IVP PRN (14:18)
[2018-04-03] MEDS ORDERED: Oxycodone *IR* 5 MG TABLET PO PRN (17:55)
[2018-04-03] MEDS ORDERED: ACETAMINOPHEN 500 MG TABLET PO PRN (17:55)
--- NOTE | 2018-04-03 19:05 | Progress Note ---
DATE 04/03/2018 POSTOP DAY #3 HISTORY The patient reports that the nausea and vomiting he had been experiencing earlier has resolved. He has had no further nausea or vomiting for the last 24 hours. He states he has not used any analgesics at all for the last 24 hours. The patient has had no further flatus or bowel movements in the last 24 hours. PHYSICAL EXAMINATION VITAL SIGNS: Temperature is 97.3 degrees Fahrenheit oral. Pulse is 63. Respiratory rate is 14. Blood pressure is 119/71. Oxygen saturation is 99% on room air. ABDOMEN: The abdominal incision looks good. LABORATORY DATA Serum sodium was 146. Serum potassium is 3.7. Serum chloride is 118. Last glucometer reading was 171. IMPRESSION 1. Doing well following laparotomy with open right hemicolectomy on 03/31/2018. 2. Episode of bradycardia during the first 24 hours after the operation. 3. Resolution of postoperative nausea and vomiting. PLAN 1. Continue to monitor the patient with telemetry monitoring. 2. Continue Lovenox and sequential compression devices for deep venous thrombosis prophylaxis. 3. Continue intravenous Pepcid for GI prophylaxis. 4. Continue incentive spirometry. 5. Continue to advance activity as tolerated. 6. Continue sliding scale insulin for glucose control. 7. Intravenous fluids were changed today from normal saline to 1/2 normal saline with 20 mEq of KCl per liter. 8. Start clear liquid diet with toast and crackers today. 9. Resume the Plavix and aspirin which the patient was taking preoperatively. 10. Resume colchicine. MTDD
[2018-04-04] MEDS: FAMOTIDINE PB 20 MG/50 ML BAG IV SCH ×2 (01:30→13:07)
[2018-04-04] MEDS: CLOPIDOGREL 75 MG TABLET PO SCH (08:57)
[2018-04-04] MEDS: COLCHICINE 0.6 MG TABLET PO SCH (08:57)
[2018-04-04] MEDS: ASPIRIN *EC* 81 MG TABLET PO SCH (08:57)
[2018-04-04] MEDS: ENOXAPARIN 40 MG/0.4 ML INJECTION SQ SCH (08:58)
[2018-04-04] MEDS: 1/2 NS with KCL 20mEq 1,000 ML IV SCH ×2 (10:30→15:08)
--- NOTE | 2018-04-04 11:59 | Cardiology Progress Note ---
Subjective Principal diagnosis: right hemicolectomy Interval history: Ha is seen in follow up for bradycardia, S/P right hemicolectomy. He is in no distress, now taking clear liquids without nausea. RN reports patient didn't sleep much last night Denies chest pain or palpitations. Exam Vital signs: Temperature 97.3 F 04/04/18 07:54 Pulse Rate 69 04/04/18 07:54 Respiratory Rate 16 04/04/18 07:54 Blood Pressure 138/81 04/04/18 07:54 Pulse Oximetry 96 04/04/18 07:54 Inpatient Medications: Generic Name Dose Route Start Last Admin Trade Name Freq PRN Reason Stop Dose Admin Acetaminophen 500 - 1,000 mg 04/03/18 17:55 Tylenol PO Q6H PRN Discomfort Aspirin 81 mg 04/04/18 09:00 04/04/18 08:57 Ecotrin PO 81 mg DAILY PAUL Administration Clopidogrel Bisulfate 75 mg 04/04/18 09:00 04/04/18 08:57 Plavix PO 75 mg DAILY PAUL Administration Colchicine 0.6 mg 04/04/18 09:00 04/04/18 08:57 Colcrys PO 0.6 mg DAILY PAUL Administration Enoxaparin Sodium 40 mg 04/01/18 09:00 04/04/18 08:58 Lovenox SQ 40 mg DAILY PAUL Administration Hydralazine HCl 10 mg 04/03/18 14:18 Apresoline IVP Q6H PRN Hypertension Hydromorphone HCl 0.5 - 1 mg 03/31/18 13:38 04/01/18 17:00 Dilaudid IVP 1 mg Q1H PRN Administration Pain Famotidine/Sodium Chloride 20 mg in 50 mls @ 100 mls/hr 03/31/18 13:38 02:00 Pepcid Premix IV Infused Q12H PAUL Infusion Potassium Chloride/Sodium Chloride 1,000 mls @ 100 mls/hr 04/03/18 13:15 10:30 1/2 Ns With Kcl 20meq Premix IV 100 mls/hr .Q10H PAUL Administration Insulin Aspart 3 - 12 unit 03/31/18 17:55 04/02/18 18:00 Novolog SQ 3 unit SS PRN Administration Protocol Losartan Potassium 50 mg 04/04/18 12:00 Cozaar PO DAILY PAUL Ondansetron HCl 4 - 8 mg 03/31/18 13:38 04/02/18 03:30 Zofran IVP 4 mg Q6H PRN Administration Nausea &/or vomiting Oxycodone HCl 5 - 10 mg 04/03/18 17:55 Roxicodone *Ir* PO Q3H PRN Pain Promethazine HCl 12.5 - 25 mg 03/31/18 13:38 04/01/18 22:04 Phenergan Inj IVP 25 mg Q6H PRN Administration Nausea &/or vomiting Discontinued Medications Generic Name Dose Route Start Last Admin Trade Name Freq PRN Reason Stop Dose Admin Enoxaparin Sodium 40 mg 03/31/18 10:10 03/31/18 09:52 Lovenox SQ 03/31/18 10:11 40 mg O ONE Administration Sodium Chloride 1,000 mls @ 50 mls/hr 03/31/18 12:15 03/31/18 10:10 Normal Saline IV Infused .Q20H PAUL Infusion Ertapenem 1 g/ Sodium Chloride 100 mls @ 200 mls/hr 03/31/18 12:17 04/02/18 13:38 IV 03/31/18 12:46 Not Given PREOP ONE Lactated Ringer's 1,000 mls @ 50 mls/hr 03/31/18 10:45 04/02/18 13:34 Lactated Ringers IV Not Given .Q20H PAUL Sodium Chloride 1,000 mls @ 100 mls/hr 03/31/18 13:38 04/03/18 13:12 Normal Saline IV Not Given .Q10H PAUL Acetaminophen 1,000 mg in 100 mls @ 400 mls/hr 04/01/18 17:26 04/02/18 13:34 Ofirmev 1 Gm IV 04/01/18 17:40 Not Given PRN ONE Acetaminophen 1,000 mg in 100 mls @ 400 mls/hr 04/01/18 17:57 Ofirmev 1 Gm IV Q6H PRN Doctors order Isopropyl Alcohol 3 each 03/31/18 12:15 03/31/18 09:00 Nozin Nasal Swab DYLAN 03/31/18 12:16 3 each PREOP ONE Administration Lidocaine HCl 1 mg 03/31/18 12:15 03/31/18 08:55 Xylocaine-Mpf 1% Vial ID 03/31/18 12:16 1 mg O ONE Administration Ondansetron HCl 4 mg 03/31/18 12:54 03/31/18 12:55 Zofran IVP 03/31/18 12:55 4 mg O ONE Administration - Constitutional no acute distress, well nourished, cooperative - Routine HEENT Exam Head: Present: normocephalic ENT: Present: mucous membranes moist - Routine Neck Exam Absent: JVD, carotid bruit - Routine Chest/Breast/Axilla Exam Chest wall: Absent: tenderness - Routine Respiratory Exam Present: CTA bilaterally. Absent: dyspnea, rales, wheezes - Routine Cardiovascular Exam Present: RRR, no murmur - Routine Abdominal Exam Present: soft - Routine Extremities Exam Present: no edema - Routine Skin Exam Present: intact, dry, warm - Routine Neurological Exam Present: alert - Routine Psychiatric Exam Present: normal affect - Urinary Catheter Management Urethral Cath placed during this visit: yes Insertion date: 03/31/18 2-way Urethral Cath placed during this visit: yes Insertion date: 03/31/18 Insertion time: 09:44 Results 04/01/18 04:00 04/04/18 04:52 Comprehensive Metabolic Panel 04/04/18 Range/Units 04:52 Sodium 143 (136-146) MEQ/L Potassium 3.5 L (3.6-5) MEQ/L Chloride 114 H (98-107) MEQ/L Carbon Dioxide 21 L (22-30) MEQ/L BUN 13.0 (9-20) MG/DL Creatinine 1.2 (0.8-1.5) mg/dL Glucose 95 (75-110) MG/DL Calcium 7.8 L (8.4-10.2) MG/DL Intake and Output 04/03/18 04/04/18 04/04/18 22:59 06:59 14:59 Intake Total 534 / 534 1171.666 / 5889.123 7435.667 / 1061.667 Output Total 250 / 250 500 / 500 350 / 350 Balance 284 / 284 671.666 / 671.666 711.667 / 711.667 Intake: IV 1171.666 / 1171.666 821.667 / 821.667 1/2 NS with KCL 20mEq 1,000 ml 1121.666 / 1121.666 821.667 / 821.667 @ 100 mls/hr IV .Q10H PAUL Rx#: [id number] Famotidine Pb 20 mg In 50 ml @ 50 / 50 100 mls/hr IV Q12H PAUL Rx#: [id number] Oral 534 / 534 240 / 240 Output: Urine 250 / 250 500 / 500 350 / 350 Other: Urine Appearance Clear 2-way Urethral Clear Urine Color Dark Yellow Yellow Light [place] 2-way Urethral Yellow Urine Odor Normal # Voids 1 Weight 247 lb 2.211 oz Patient Weight 04/05/18 06:59 Weight 247 lb 2.211 oz Assessment and Plan - Assessment and Plan (1) Bradycardia Current visit: Yes Status: Acute (2) S/P right hemicolectomy Current visit: Yes Status: Acute (3) Atherosclerosis of coronary artery bypass graft without angina pectoris Current visit: Yes Status: Chronic (4) Essential (primary) hypertension Current visit: Yes Status: Chronic (5) Mixed hyperlipidemia Current visit: Yes Status: Chronic (6) Type 2 diabetes mellitus without complications Current visit: Yes Status: Chronic - Assessment and Plan Bradycardia Current visit: Yes Status: Acute - Lowest documented HR was 53, last 48 hours 60-90s - asymptomatic - Holding BB. - No pauses or heart block on telemetry - Mag and TSH WNL S/P right hemicolectomy Current visit: Yes Status: Acute - PO day 3 - Denies c/o pain, N/V - Sip and ice chips, tolerates well Atherosclerosis of coronary artery bypass graft without angina pectoris Current visit: Yes Status: Chronic - Successful MIKE to LAD through [facility] 08/23/17 - off Plavix for emergent surgery - resume Plavix and Aspirin for dual antiplatelet therapy with a sip when okay with Dr. Youngblood Essential (primary) hypertension Current visit: Yes Status: Chronic - Trending up. Hydralazine 10mg IV q 6H prn SBP >180 - continue home therapy when okay with surgery Mixed hyperlipidemia Current visit: Yes Status: Chronic - Takes Crestor, PCP manages Type 2 diabetes mellitus without complications Current visit: Yes Status: Chronic - PCP manages Thank you for allowing us to participate in the care of this patient, we will follow along with you. 04/04/18 Taking Clears with toast & crackers - no nausea Aspirin and Plavix resumed Resume Losartan for better control of BP. K+ 3.5 today, replace, pending Hospital Course Summary Disclaimer: The visit summary below is not to be considered part of the above Progress Note.
[2018-04-04] MEDS: LOSARTAN 50 MG TABLET PO SCH (13:03)
[2018-04-04] MEDS: INSULIN ASPART 100unit/ml INJECTION SQ PRN ×2 (13:11→18:39)
--- NOTE | 2018-04-04 15:58 | Progress Note ---
DATE 04/04/2018 POSTOP DAY #4 HISTORY The patient has been tolerating a clear liquid diet with toast and crackers. He is having no nausea or vomiting. He did have a bowel movement today. The patient is taking Plavix and aspirin. Cardiology service did resume the preoperative losartan for the patient today for better control of his blood pressure. The patient does have some mild hypokalemia today and the Cardiology service did give the patient some oral potassium to help correct this. PHYSICAL EXAMINATION VITAL SIGNS: Temperature is 97.3 degrees Fahrenheit oral. Pulse is 74. Respiratory rate is 16. Blood pressure is 138/81. Oxygen saturation is 96% on room air. ABDOMEN: The abdominal incision looks good. LABORATORY DATA Serum sodium is 143. Serum potassium is 3.5. Serum magnesium is 1.9 which is within normal range. Serum chloride is 114. Serum creatinine is 1.2. IMPRESSION 1. Doing well following laparotomy with open right hemicolectomy on 03/31/2018. 2. Episode of bradycardia during the first 24 hours after the operation. 3. Mild hypokalemia. PLAN 1. Continue to monitor the patient with telemetry monitoring. 2. Continue Lovenox and sequential compression devices for deep venous thrombosis prophylaxis. 3. Discontinue Pepcid. 4. Continue incentive spirometry. 5. Continue to advance activity as tolerated. 6. Continue sliding scale insulin for glucose control. 7. Decrease rate of administration of intravenous fluids. 8. Advance diet to full liquid diet with toast and crackers. MTDD
[2018-04-05] MEDS: INSULIN ASPART 100unit/ml INJECTION SQ PRN ×3 (00:21→12:29)
[2018-04-05] MEDS: 1/2 NS with KCL 20mEq 1,000 ML IV SCH ×2 (04:54→05:01)
[2018-04-05] MEDS: ASPIRIN *EC* 81 MG TABLET PO SCH (08:29)
[2018-04-05] MEDS: CLOPIDOGREL 75 MG TABLET PO SCH (08:29)
[2018-04-05] MEDS: LOSARTAN 50 MG TABLET PO SCH (08:29)
[2018-04-05] MEDS: COLCHICINE 0.6 MG TABLET PO SCH (08:29)
[2018-04-05] MEDS: ENOXAPARIN 40 MG/0.4 ML INJECTION SQ SCH (08:29)
[2018-04-05 15:29] VITALS: BP 136/80; RESP 20; TEMP 95.6; O2SAT 99
[2018-04-05 16:06] VITALS: PULSE 76
--- NOTE | 2018-04-05 19:26 | Progress Note ---
DATE 04/05/2018 POSTOP DAY #5 HISTORY The patient tolerated a full liquid diet with toast and crackers for dinner yesterday evening and for breakfast this morning. The patient had a regular diet for lunch today and tolerated that well. He continues to have bowel movements. He is having no nausea or vomiting. He is not using any analgesics. He is ambulating well. PHYSICAL EXAMINATION VITAL SIGNS: Temperature is 95.6 degrees Fahrenheit oral. Pulse is 67. Respiratory rate is 20. Blood pressure is 136/80. Oxygen saturation is 99% on room air. ABDOMEN: The abdominal incision looks good. IMPRESSION Doing well following laparotomy with open right hemicolectomy on 03/31/2018. PLAN Dismiss patient from the hospital today. DISCHARGE MEDICATIONS 1. Resume medications which the patient was taking prior to admission to the hospital. 2. Tylenol and ibuprofen for pain control. DISCHARGE DISPOSITION Followup office visit with Dr. Youngblood next week. BARRIE
--- NOTE | 2018-04-10 11:19 | Discharge Summary ---
DISCHARGE DIAGNOSES 1. 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 2. Several small tubular adenoma colon polyps. 3. Small tubulovillous adenoma cecal polyp. 4. Postoperative episode of bradycardia. 5. Postoperative nausea and vomiting. 6. Postoperative mild hypokalemia. 7. Coronary artery disease 8. Status post cardiac catheterization with placement of drug-eluting coronary artery stent on 08/13/2017. 9. Benign essential hypertension. 10. Hyperlipidemia. 11. Gout. 12. Colonic diverticulosis. 13. Type 2 diabetes mellitus. 14. Diabetic polyneuropathy. 15. Past history of stage III chronic kidney disease. 16. Past history of chronic paranoid schizophrenia. CONSULTS 1. Dr. Bazzi HOSPITAL COURSE This patient was admitted to [facility] on 03/31/2018. History and physical examination findings at the time of admission to the hospital can be found in the dictated admission history and physical examination report in the chart. The patient was admitted with a main admission diagnosis of low grade appendiceal mucinous neoplasm found in appendix removed at laparoscopic appendectomy on 01/21/2018. The patient was known at the time of admission to the hospital to have coronary artery disease. The patient was known to have undergone cardiac catheterization with placement of a drug-eluting coronary artery stent on 08/23/2017. The patient had been recently anticoagulated with Plavix prior to this hospitalization. The Plavix was held for five days prior to admission to this hospitalization. The patient was known at the time of admission to the hospital to have chronic medical problems including benign essential hypertension, hyperlipidemia, gout, colonic diverticulosis, type 2 diabetes mellitus, diabetic polyneuropathy, past history of stage III chronic kidney disease and past history of chronic paranoid schizophrenia. The P2Y12 ( Plavix) platelet inhibition test was checked preoperatively on 03/31/2018 and the result was 234. The patient was given Lovenox 40 mg subcutaneously preoperatively on 03/31/2018. The patient was also given Invanz intravenously preoperatively. The patient did undergo a laparotomy with right hemicolectomy on 03/31/2018. Details of the operative findings can be found in the dictated operative report in the chart. There were no complications during the operation. The patient did tolerate the operation well. The patient was transferred from the recovery room to the critical care unit after the operation as a precautionary measure. The patient did experience an episode of sudden bradycardia early on the evening of the day of operation. The patient was asymptomatic at this time. The bradycardia resolved spontaneously. Dr. Youngblood was notified. The regular refinery operator reforming unit for this patient (Dr. Hernandez) was out of town. Dr. Bazzi was consulted regarding the bradycardia. It was noted that the patient did have an occasional heart rate as low as 45 at the time of the bradycardia. This was nonsustained. This was asymptomatic. The cardiac rhythm then remained stable throughout the remainder of the night on the day of operation. On the first postoperative day, the patient was up in the chair. He was alert and oriented. The patient was in the intensive care unit at this time. The patient reported that he did have good pain control with intravenous Dilaudid. The patient was using incentive spirometry. He was receiving Lovenox and sequential compression devices for deep venous thrombosis prophylaxis. The patient was receiving sliding scale insulin for glucose control. Urine output had been good since the operation. Vital signs were stable. Dressings were left in place at the abdominal incision. White blood cell count was 6300. Hemoglobin was 10.9. Hematocrit was 34.2. Serum sodium was 142. Serum potassium was 4.6. Serum creatinine was 1.3. Serum glucose was 150. Glucometer reading was 172. The patient did appear to be doing well overall. The patient was seen by the Cardiology service on the morning of the first postoperative day. The bradycardia was noted by the Cardiology service. The Cardiology Service recommended continuing to monitor the patient with telemetry monitoring. The patient was kept in the intensive care unit. Intravenous Pepcid was being used for GI prophylaxis. Activity was advanced as tolerated. The Reyna catheter was discontinued on the first postoperative day. Sliding scale insulin was used for glucose control. The patient did experience some emesis on the first postoperative day. He continued to have nausea and emesis throughout the night of the first postoperative day. The patient did receive intravenous Zofran and intravenous Pepcid throughout this time for treatment of the nausea and vomiting. On the second postoperative day, the patient continued to have some emesis. Intravenous Tylenol was started for pain control at this time to use as a nonnarcotic for pain control to try decrease the nausea and vomiting. The patient could not use intravenous Toradol due to the chronic kidney disease. The patient did report good pain control on the morning of the second postoperative day. The patient was up in the chair. The patient had been urinating without difficulty following removal of the Reyna catheter on the previous day. The patient did report having four liquid bowel movements on the second postoperative day. Vital signs remained stable. The abdominal incision looked good. Glucometer readings were 162, 142 and 175. The patient continued to be monitored with telemetry monitoring. Lovenox and sequential compression devices were continued for deep venous thrombosis prophylaxis. Intravenous Pepcid was continued for GI prophylaxis. Incentive spirometry was continued. Activity was advanced as tolerated. Sliding-scale insulin was continued for glucose control. The patient was transferred out of the critical care unit out to a room on the surgical unit on the second postoperative day. Oral diet was not started yet at this time because the patient was having postoperative nausea and vomiting. On the third postoperative day, the patient reported that the nausea and vomiting that he had been experiencing earlier had resolved. He was not using any analgesics at all during the previous 24 hours. The patient had not had any further flatus or bowel movements for the previous 24 hours. Vital signs were stable. The abdominal incision looked good. Serum sodium was 146. Serum potassium was 3.7. Serum chloride was 118. Glucometer reading was 171. The postoperative nausea and vomiting appeared to be resolved. The patient continued to be monitored with telemetry monitoring out on the surgical unit. Lovenox and sequential compression devices were continued for deep venous thrombosis prophylaxis. Intravenous Pepcid was continued for GI prophylaxis. Incentive spirometry was continued. Activity was advanced as tolerated. Sliding scale insulin was continued for glucose control. Intravenous fluids were changed at this time from normal saline to half normal saline with 20 mEq of potassium chloride per liter. A clear liquid diet with toast and crackers was started on the third postoperative day. The Plavix and aspirin which the patient had been taking preoperatively were resumed at this time. Colchicine which the patient had been taking preoperatively was resumed. On the fourth postoperative day, the patient was tolerating the clear liquid diet with toast and crackers. He was having no nausea or vomiting. He did have another bowel movement on the fourth postoperative day. The patient was taking Plavix and aspirin. The Cardiology service did resume the preoperative losartan for the patient on the fourth postop day for better control of his blood pressure. Serum sodium was 143. Serum potassium was 3.5. Serum magnesium was 1.9 which was within normal range. Serum chloride was 114. Serum creatinine was 1.2. The mild hypokalemia at this time was noted and the Cardiology service did give the patient some oral potassium to help correct this. Vital signs were stable. The abdominal incision looked good. The patient continued to be monitored with telemetry monitoring. Lovenox and sequential compression devices were continued for deep venous thrombosis prophylaxis. Pepcid was discontinued at this time. Incentive spirometry was continued. Diet continued to be advanced as tolerated. Sliding scale insulin was continued for glucose control. Rate of administration of intravenous fluids was decreased. Diet was advanced to a full liquid diet with toast and crackers. On the fifth postoperative day, the patient was tolerating the full liquid diet with toast and crackers. Diet was advanced to a regular diet for lunch and the patient tolerated this well. He continued to have bowel movements. He was having no nausea or vomiting. He was not using any analgesics. He was ambulating well. Vital signs were stable. The abdominal incision looked good. The patient appeared to be doing well overall on the fifth postoperative day. The patient was dismissed from [facility] on the fifth postoperative day in stable condition. A pathology report was returned on the right hemicolectomy specimen submitted at the time of the operation. This pathology report showed no residual mucinous neoplasm identified. There were multiple benign regional lymph nodes with no metastases identified. The patient did have appendectomy postoperative changes noted in the specimen. The patient did have several small tubular adenoma colon polyps and one small tubulovillous adenoma polyp from the cecum noted in the specimen. There was no high-grade dysplasia in any of the adenomatous colon polyps. DISCHARGE MEDICATIONS 1. Crestor 40 mg one p.o. daily. 2. Plavix 75 mg one p.o. daily. 3. Colchicine 0.6 mg p.o. daily. 4. Metoprolol succinate 25 mg p.o. daily. 5. Enteric-coated aspirin 81 mg one p.o. daily. 6. Losartan 50 mg one p.o. daily. 7. Prolixin 8 mg intramuscularly every two weeks. 8. Actos 30 mg one p.o. daily. DISCHARGE DISPOSITION Followup office visit with Dr. Youngblood for a postoperative office visit one week following discharge from the hospital. [facility]
== END 2018-04-05 19:05 | disposition home or self-care (01) | DRG 330 ==
LOC: SRG 07:43 → SUR 07:43 → NMC.PERIOP 07:43 → INTOOBSV 07:43 → CCU 13:41 → SRG 04-01 13:12 → UNDODISIN 04-05 19:05 → SUR 04-06 07:18
PROVIDERS: ADMIT Surgery; ATTEND Surgery